=== PATIENT | male | born 1960 | race Caucasian/White ===

== ENCOUNTER 2018-06-07 16:13 | Observation (INO) ==
[2018-06-07] MEDS ORDERED: Chlorhexidine Gluconate 2% 1 Pack (2 Cloths) TOPICAL ONE (17:45)
[2018-06-07] MEDS ORDERED: Sodium Chlor 0.9% Inj 500 ML IV.CONT ONE (17:45)
[2018-06-07] MEDS ORDERED: Metoprolol Tartrate 25 MG Tablet PO ONE (17:45)
[2018-06-07 17:59] LABS: Hematocrit 40.1 % (39.0-51.0); Hemoglobin 14.1 gm/dL (13.0-17.0); Mean Corpuscular HGB Conc 35.1 % (32.0-36.0); Mean Corpuscular Volume 91.2 fL (80.0-100.0); Mean Platelet Volume 7.3 fL (7.0-11.0); Platelet Count 253 th/mm3 (150-450); Red Cell Distribution Width 13.1 % (11.6-17.2); White Blood Count 11.6 th/mm3 (4.0-11.0)
[2018-06-07] MEDS ORDERED: ceFAZolin 2 GM Premix Inj 2 GM/50 ML PIGGYBACK IV.SIG ONE (20:07)
[2018-06-07] MEDS ORDERED: Ketorolac Inj 30 MG/ML (IVP) Vial IV.PUSH PRN (20:46)
[2018-06-07] MEDS ORDERED: Potassium Chlor 40 mEq Premix 40 MEQ/100 ML PIGGYBACK IV.SIG PRN (20:46)
[2018-06-07] MEDS ORDERED: Potassium Chlor 20 mEq Premix 20 MEQ/100 ML PIGGYBACK IV.SIG PRN (20:46)
[2018-06-07] MEDS ORDERED: KCL 20 mEq/D5W/NaCl 0.9% Inj 1,000 ML IV.CONT SCH (21:00)
[2018-06-07] MEDS ORDERED: fentaNYL Citrate Inj 100 MCG/2 ML Ampul ONE (21:02)
[2018-06-07] MEDS ORDERED: *morphine SULFATE 4 MG/ML PERIprocedure ONLY ONE (21:11)
[2018-06-07] MEDS ORDERED: *Ondansetron Inj 4 MG/2 ML Vial PERIprocedural Use ONLY ONE (21:16)
[2018-06-07] MEDS ORDERED: *HYDROmorphone PF Inj 1 MG/ML Ampul PERIprocedural Use ONLY ONE (21:20)
[2018-06-08] MEDS: ceFAZolin Inj 1 GM in Sodium Chloride 0.9% Inj 100 ML IV.SIG SCH ×3 (02:35→10:24)
[2018-06-08] MEDS ORDERED: Lisinopril 20 MG Tablet PO SCH (09:00)
[2018-06-08] MEDS ORDERED: Pantoprazole Inj 40 MG Vial IV.PUSH SCH (09:00)
[2018-06-08] MEDS ORDERED: EXENATIDE MICROSPHERES 2 MG SQ SCH (09:00)
[2018-06-08] MEDS ORDERED: ceFAZolin Inj 1 GM in Sodium Chlor 0.9% Inj 100 ML IV.SIG SCH ×2 (10:00→14:00)
--- NOTE | 2018-06-08 10:28 | P.PNCS ---
Subjective Colorectal Surgery Post Op Day #: 1 Interval history: Pt seen. Dressing and packing removed. Objective Result Diagrams: 06/07/18 17:45 Objective Remarks: Wound open and clean Assessment and Plan - Plan D/C today. Will place on Cipro for 5 days due to Diabetes. F/U Dr Arana next week Warm tub baths Normal activity
--- NOTE | 2018-06-08 14:47 | ECG ---
Date Performed: 06/07/2018 Time Performed: 17:40:29 PTAGE: 58 years EKG: SINUS TACHYCARDIA LEFT BUNDLE BRANCH BLOCK ABNORMAL ECG NO PREVIOUS TRACING DOCTOR: oLtus Sullivan Interpretating Date/Time 06/08/2018 14:46:13
--- NOTE | 2018-06-09 22:28 | MP ---
cc: Maurice Arana MD, Andrew H MD DATE OF OPERATION: 06/07/2018 PREOPERATIVE DIAGNOSIS: Ischiorectal abscess. PROCEDURES: Exam under anesthesia with drainage of ischiorectal abscess and fistulotomy. POSTOPERATIVE DIAGNOSIS: Ischiorectal abscess. SURGEON: Maurice Arana MD PROCEDURE: The patient was placed in the supine position. After adequate general anesthesia, he was turned and placed in the left lateral decubitus position, his buttocks taped apart, prepped with Betadine solution and draped in the usual sterile fashion. The buttock area was examined and a half adams retractor inserted. There was a cellulitic area in the posterior left part of the canal, which was very inflammatory, not really fluctuant. It was draining some foul smelling purulent fluid. A lacrimal probe was placed into the cavity and passed easily up toward a crypt in the posterior midline. The fistula was opened with electrocautery, entering a large cavity full of granulation tissue, but not much remaining purulent fluid. Cavity was then opened widely externally, taking all the inflammatory skin off and sent for pathological evaluation. The cavity was irrigated copiously and after hemostasis achieved, packed with a Kerlix dressing and a large soft dressing externally. The patient tolerated the procedure quite well and was brought to the recovery room in stable condition. The sponge and needle counts were correct at the end of the procedure. Maurice Arana MD [facility]/ , 08:59 PM , 09:03 PM
== END 2018-06-08 12:21 | disposition home or self-care (01) ==
LOC: HOR 16:13 → HPAC 16:13 → HRIP 16:27 → HOR 16:28 → N07 22:44
PROVIDERS: ADMIT Colon & Rectal Surgery; ATTEND Colon & Rectal Surgery
CPT/HCPCS: 82948; 82962; 85027; 88304; 88305; 93005; 94150; 96365; 96366; 96375; C9113; G0378; J0131; J0690; J1170; J2060; J2250; J2270; J2405; J3010; J3370; J3480; J7120